=== PATIENT | female | born 1950 | race Caucasian/White ===

== ENCOUNTER 2017-09-28 17:51 | Emergency (ER) | payer MEDICARE, OTHER ==
[~2017-09-28] VITALS: Ht 175.3 cm; Wt 119.7 kg
[2017-09-28 18:19] LABS: Basophils # (auto) 0.1 uL; Basophils % (auto) 0.9 % (0.0-2.0); Eosinophils # (auto) 0.2 uL; Eosinophils % (auto) 2.3 % (0.0-7.0); Hematocrit 42.9 % (36.0-46.0); Hemoglobin 14.8 g/dL (12.2-16.2); Lymphocytes # (auto) 3.4 uL; Mean Corpuscular Hemoglobin 32.3 pg (28.0-32.0); Mean Corpuscular Hgb Conc. 34.4 g/dL (32.0-36.0); Mean Corpuscular Volume 93.7 fL (80.0-100.0); Monocytes # (auto) 0.8 uL; Monocytes % (auto) 8.2 % (0.0-12.0); Neutrophils # (auto) 5.7 uL; Neutrophils % (auto) 55.6 % (37.0-80.0); Nucleated Red Blood Cells % 0.1 %; Platelet Count (auto) 270 10^3/uL (140-450); White Blood Cell 10.2 10^3/uL (4.4-10.8)
[2017-09-28 18:32] LABS: INR 0.96 (0.9-1.15); Partial Thromboplastin Time 29.8 sec (22.64-33.71); Prothrombin Time 10.5 sec (9.37-12.3)
[2017-09-28 18:36] LABS: Albumin 2.9 g/dL (3.4-5.0); Anion Gap 8 (5-15); Aspartate Aminotransferase 16 U/L (15-37); BUN/Creatinine Ratio 11.7; Blood Urea Nitrogen 12 mg/dL (7-18); Calcium 8.2 mg/dL (8.5-10.1); Carbon Dioxide 25 mmol/L (21-32); Chloride 107 mmol/L (98-107); GFR African American 69 mL/min; GFR Non-African American 57 mL/min; Glucose 100 mg/dL (74-106); Magnesium 1.9 mg/dL (1.6-2.6); Potassium 4.1 mmol/L (3.5-5.1); Sodium 140 mmol/L (136-145)
[2017-09-28 18:41] LABS: Alkaline Phosphatase 115 U/L (45-117); Bilirubin, Total 0.3 mg/dL (0.2-1.0); Total Protein 7.5 g/dL (6.4-8.2)
[2017-09-28 21:35] VITALS: BP 113/65
== END 2017-09-28 23:07 | disposition left against medical advice (07) ==
LOC: ER 18:01
DX: R00.2 Palpitations (principal); Z53.21 Procedure and treatment not carried out due to patient leaving prior to being seen by health care provider
CPT/HCPCS: 36415; 80053; 83735; 84484; 85025; 85610; 85730; 93005

== ENCOUNTER 2018-11-07 01:37 | Emergency (ER) | payer OTHER, MEDICAID ==
[~2018-11-07] VITALS: Ht 175.3 cm; Wt 108.9 kg
[2018-11-07] MEDS ORDERED: DILTIAZEM HCL 25 MG/5 ML VIAL IV ONE ×2 (03:10→03:30)
[2018-11-07] MEDS ORDERED: ADENOSINE 6 MG/2 ML INJ IV ONE (03:30)
[2018-11-07 04:25] LABS: Basophils # (auto) 0.1 uL; Eosinophils # (auto) 0.1 uL; Hematocrit 44.4 % (36.0-46.0); Lymphocytes # (auto) 2.1 uL; Lymphocytes % (auto) 17.9 % (10.0-50.0); Mean Corpuscular Hgb Conc. 33.8 g/dL (32.0-36.0); Mean Corpuscular Volume 91.7 fL (80.0-100.0); Monocytes # (auto) 0.7 uL; Monocytes % (auto) 5.9 % (0.0-12.0); Neutrophils # (auto) 8.7 uL; Neutrophils % (auto) 74.2 % (37.0-80.0); Platelet Count (auto) 278 10^3/uL (140-450); Red Blood Cells 4.84 10^6/uL (4.0-5.20); Red Cell Distribution Width 15.1 % (11.8-14.3); White Blood Cell 11.7 10^3/uL (4.4-10.8)
[2018-11-07 04:35] LABS: Albumin 3.1 g/dL (3.4-5.0); Anion Gap 7 (5-15); BUN/Creatinine Ratio 12.8; Blood Urea Nitrogen 12 mg/dL (7-18); Calcium 7.9 mg/dL (8.5-10.1); Carbon Dioxide 25 mmol/L (21-32); Chloride 110 mmol/L (98-107); GFR African American 77 mL/min; GFR Non-African American 63 mL/min; Glucose 107 mg/dL (74-106); Potassium 3.9 mmol/L (3.5-5.1); Sodium 142 mmol/L (136-145)
[2018-11-07 04:41] LABS: Alanine Aminotransferase 14 U/L (13-56); Alkaline Phosphatase 112 U/L (45-117); Aspartate Aminotransferase 16 U/L (15-37); Bilirubin, Total 0.3 mg/dL (0.2-1.0); Total Protein 7.4 g/dL (6.4-8.2)
[2018-11-07 04:57] LABS: INR 0.94 (0.9-1.15); Prothrombin Time 10.1 sec (9.27-12.13)
[2018-11-07 08:31] VITALS: BP 129/75
== END 2018-11-07 08:52 | disposition short-term general hospital (02) ==
LOC: EDUNIT# 01:37 → EDBD 01:37 → ER 01:39
DX: J44.1 Chronic obstructive pulmonary disease with (acute) exacerbation (principal); Z88.6 Allergy status to analgesic agent
CPT/HCPCS: 36415; 71045; 80053; 83735; 83880; 84443; 84484; 85025; 85379; 85610; 85730; 93005; 94761; 96374

== ENCOUNTER 2024-08-02 11:26 | Inpatient (IN) | payer OTHER, MEDICAID ==
[~2024-08-02] VITALS: Ht 175.3 cm; Wt 95.7 kg
[2024-08-02 12:16] LABS: Basophils # (auto) 0.1 10 ^3/uL (0-0.2); Basophils % (auto) 0.9 % (0.0-2.0); Eosinophils # (auto) 0.1 10 ^3/uL (0-0.8); Hemoglobin 12.4 g/dL (12.2-16.2); Lymphocytes # (auto) 1.6 10 ^3/uL (0.4-5.4); Red Blood Cells 4.74 10^6/uL (4.0-5.20)
[2024-08-02 12:18] LABS: Eosinophils % (auto) 0.8 % (0.0-7.0); Hematocrit 37.9 % (36.0-46.0); Mean Corpuscular Hemoglobin 26.2 pg (28.0-32.0); Mean Corpuscular Hgb Conc. 32.7 g/dL (32.0-36.0); Monocytes # (auto) 0.7 10 ^3/uL (0-1.3); Monocytes % (auto) 6.4 % (0.0-12.0); Neutrophils # (auto) 9.1 10 ^3/uL (1.6-8.6); Neutrophils % (auto) 77.9 % (37.0-80.0); Nucleated Red Blood Cells % 0.1 %; Platelet Count (auto) 297 10^3/uL (140-450); Red Cell Distribution Width 19.4 % (11.8-14.3); White Blood Cell 11.7 10^3/uL (4.4-10.8)
[2024-08-02 12:26] LABS: Chloride 104 mmol/L (98-107); Sodium 141 mmol/L (136-145)
[2024-08-02 12:27] LABS: Anion Gap 6 (5-15); Carbon Dioxide 31 mmol/L (20-31)
[2024-08-02 12:28] LABS: Calcium 8.5 mg/dL (8.7-10.4)
[2024-08-02 12:32] LABS: Glucose 106 mg/dL (74-106)
[2024-08-02 12:33] LABS: Magnesium 1.2 mg/dL (1.6-2.6)
[2024-08-02 12:35] LABS: BUN/Creatinine Ratio 5.4 (10.0-20.0); Blood Urea Nitrogen < 5 mg/dL (9-23)
[2024-08-02] MEDS: IOHEXOL 350 MG/ML 100ML IJ ONE (15:42)
[2024-08-02 16:14] LABS: INR 1.07 (0.9-1.15); Partial Thromboplastin Time 28.5 SEC (24.5-34.5); Prothrombin Time 11.3 sec (9.3-11.8)
[2024-08-02 17:12] VITALS: PULSE 55; RESP 12; O2SAT 100
[2024-08-02] MEDS: HEPARIN SODIUM (PORCINE) 5000 UNITS/ML 1ML VIAL IV ONE ×2 (17:25→17:28)
[2024-08-02] MEDS: HEPARIN DRIP/D5W 100UNITS/ML 250 ML IV SCH (17:29)
[2024-08-02] MEDS: POTASSIUM CHL 20MEQ/100ML 100 ML IV ONE (17:36)
[2024-08-02] MEDS: POTASSIUM CHL 20 Meq TABLET PO ONE (17:44)
[2024-08-02 18:29] LABS: COVID19 ANTIGEN SOFIA FIA NEGATIVE (NEGATIVE); Rapid Influenza A Negative (Negative); Rapid Influenza B Negative (Negative)
[2024-08-02] MEDS: CALCIUM GLUC 1,000mg/50ml-NS 50 ML IV ONE (21:47)
[2024-08-02] MEDS: MAGNESIUM SULFATE 1GM/100ML 100 ML IV SCH ×2 (21:47→23:59)
[2024-08-02 22:59] LABS: INR 1.15 (0.9-1.15); Prothrombin Time 12.1 sec (9.3-11.8)
[2024-08-02 23:00] LABS: Partial Thromboplastin Time 136.3 SEC (24.5-34.5)
[2024-08-03] MEDS: HEPARIN DRIP/D5W 100UNITS/ML 250 ML IV SCH (00:34)
[2024-08-03] MEDS: MELATONIN 5 MG TAB PO ONE (00:41)
[2024-08-03] MEDS: cefTRIAXone 1GM/50ML D5W 50 ML IV ONE (00:43)
[2024-08-03] MEDS ORDERED: ALBUTEROL SULF 2.5 MG/0.5ML(0.5%) NEB SOLN NEB PRN (01:00)
[2024-08-03] MEDS ORDERED: IPRATROPIUM BROM 0.5 MG/2.5ML INH SOL NEB PRN (01:00)
[2024-08-03] MEDS: AZITHROMYCIN 500MG/ 250ML 250 ML IV ONE (01:34)
[2024-08-03 02:46] LABS: Albumin 3.5 g/dL (3.2-4.8); Alkaline Phosphatase 85 U/L (46-116); Anion Gap 6 (5-15); Aspartate Aminotransferase 11 U/L (13-40); Calcium 8.4 mg/dL (8.7-10.4); Carbon Dioxide 27 mmol/L (20-31); Chloride 105 mmol/L (98-107); Glucose 122 mg/dL (74-106); Potassium 2.6 mmol/L (3.5-5.1); Sodium 138 mmol/L (136-145)
[2024-08-03 02:47] LABS: Alanine Aminotransferase < 9 U/L (7-40); BUN/Creatinine Ratio 5.8 (10.0-20.0); Bilirubin, Total 0.5 mg/dL (0.2-1.0); Blood Urea Nitrogen < 5 mg/dL (9-23); Total Protein 6.6 g/dL (5.7-8.2)
[2024-08-03 03:16] VITALS: BP 145/64; PULSE 61; RESP 20; TEMP 98.2; O2SAT 96
[2024-08-03] MEDS: POTASSIUM CHL 20MEQ/100ML 100 ML IV SCH (04:45)
[2024-08-03] MEDS: POTASSIUM CHLORIDE 80 MEQ, LIDOCAINE 1% (LOCAL ANESTH.) 6 ML in SODIUM CHL 0.9% 500 ML IV ONE (06:20)
[2024-08-03] MEDS: POTASSIUM EFFERVESENT TAB 25 MEQ PO ONE (06:20)
[2024-08-03 06:32] LABS: Basophils # (auto) 0.1 10 ^3/uL (0-0.2); Basophils % (auto) 0.7 % (0.0-2.0); Eosinophils # (auto) 0.2 10 ^3/uL (0-0.8); Eosinophils % (auto) 1.6 % (0.0-7.0); Hematocrit 36.5 % (36.0-46.0); Hemoglobin 11.9 g/dL (12.2-16.2); Lymphocytes # (auto) 3.2 10 ^3/uL (0.4-5.4); Lymphocytes % (auto) 25.6 % (10.0-50.0); Mean Corpuscular Hemoglobin 26.1 pg (28.0-32.0); Mean Corpuscular Hgb Conc. 32.6 g/dL (32.0-36.0); Mean Corpuscular Volume 80.2 fL (80.0-100.0); Monocytes # (auto) 0.9 10 ^3/uL (0-1.3); Monocytes % (auto) 7.5 % (0.0-12.0); Neutrophils # (auto) 8.1 10 ^3/uL (1.6-8.6); Neutrophils % (auto) 64.6 % (37.0-80.0); Platelet Count (auto) 278 10^3/uL (140-450); Red Blood Cells 4.55 10^6/uL (4.0-5.20); White Blood Cell 12.6 10^3/uL (4.4-10.8)
[2024-08-03 06:46] LABS: Anion Gap 6 (5-15); Calcium 8.8 mg/dL (8.7-10.4); Carbon Dioxide 30 mmol/L (20-31); Chloride 104 mmol/L (98-107); Potassium 2.6 mmol/L (3.5-5.1); Sodium 140 mmol/L (136-145)
[2024-08-03 06:51] LABS: Glucose 108 mg/dL (74-106)
[2024-08-03 06:53] LABS: Magnesium 1.9 mg/dL (1.6-2.6)
[2024-08-03 06:54] LABS: BUN/Creatinine Ratio 6.3 (10.0-20.0); Blood Urea Nitrogen < 5 mg/dL (9-23)
[2024-08-03 07:00] LABS: INR 1.08 (0.9-1.15); Prothrombin Time 11.4 sec (9.3-11.8)
[2024-08-03 07:09] LABS: Partial Thromboplastin Time 72.2 SEC (24.5-34.5)
[2024-08-03 08:00] VITALS: PULSE 58; RESP 11; O2SAT 97
[2024-08-03 10:45] VITALS: O2SAT 95
[2024-08-03 10:58] LABS: Magnesium 1.9 mg/dL (1.6-2.6)
[2024-08-03 12:36] LABS: INR 1.1 (0.9-1.15); Prothrombin Time 11.6 sec (9.3-11.8)
[2024-08-03 12:52] LABS: Partial Thromboplastin Time 77.8 SEC (24.5-34.5)
[2024-08-03] MEDS ORDERED: POTASSIUM CHL 20MEQ/100ML 100 ML IV SCH (13:00)
[2024-08-03] MEDS: MAGNESIUM OXIDE 400 MG TAB PO ONE (13:26)
[2024-08-03] MEDS: POTASSIUM CHL 20 Meq TABLET PO ONE (14:44)
[2024-08-03 19:55] LABS: INR 1.1 (0.9-1.15); Partial Thromboplastin Time 58.8 SEC (24.5-34.5); Prothrombin Time 11.6 sec (9.3-11.8)
[2024-08-03 20:46] VITALS: PULSE 73; RESP 17; O2SAT 88
[2024-08-03 23:39] VITALS: BP 140/55; PULSE 64; RESP 18; TEMP 98.3; O2SAT 96
[2024-08-04] VITALS (10 sets, daily range): BP systolic 131–151; BP diastolic 46–56; PULSE 60–70; RESP 18–20; TEMP 97.9–98.3; O2SAT 90–97
[2024-08-04] MEDS: cefTRIAXone 1GM/50ML D5W 50 ML IV SCH (01:15)
[2024-08-04] MEDS ORDERED: ATEN-60 PO (01:32)
[2024-08-04] MEDS ORDERED: FLUO60TA7 PO (01:32)
[2024-08-04] MEDS ORDERED: ATOR20TA50 PO (01:32)
[2024-08-04] MEDS ORDERED: HYDR-4902 PO (01:32)
[2024-08-04] MEDS ORDERED: ALBUAER3 IN (01:32)
[2024-08-04] MEDS ORDERED: OMEP20TA PO (01:32)
[2024-08-04] MEDS ORDERED: LEVO250T58 PO (01:32)
[2024-08-04 01:42] LABS: INR 1.06 (0.9-1.15); Partial Thromboplastin Time 29.8 SEC (24.5-34.5); Prothrombin Time 11.2 sec (9.3-11.8)
[2024-08-04] MEDS: AZITHROMYCIN 500MG/ 250ML 250 ML IV SCH (02:06)
[2024-08-04] MEDS: HEPARIN SODIUM (PORCINE) 5000 UNITS/ML 1ML VIAL IV ONE (02:26)
[2024-08-04] MEDS: HEPARIN DRIP/D5W 100UNITS/ML 250 ML IV SCH (02:32)
[2024-08-04 06:36] LABS: Anion Gap 5 (5-15); Carbon Dioxide 32 mmol/L (20-31); Chloride 104 mmol/L (98-107); Sodium 141 mmol/L (136-145)
[2024-08-04 06:37] LABS: Calcium 8.7 mg/dL (8.7-10.4)
[2024-08-04 06:38] LABS: Basophils # (auto) 0.1 10 ^3/uL (0-0.2); Eosinophils # (auto) 0.4 10 ^3/uL (0-0.8); Hemoglobin 11.6 g/dL (12.2-16.2); Lymphocytes # (auto) 3.5 10 ^3/uL (0.4-5.4); Neutrophils # (auto) 7.1 10 ^3/uL (1.6-8.6); Red Cell Distribution Width 18.9 % (11.8-14.3)
[2024-08-04 06:42] LABS: Glucose 95 mg/dL (74-106)
[2024-08-04 06:49] LABS: BUN/Creatinine Ratio 6.7 (10.0-20.0); Blood Urea Nitrogen < 5 mg/dL (9-23)
[2024-08-04 06:58] LABS: Basophils % (auto) 0.8 % (0.0-2.0); Eosinophils % (auto) 3.3 % (0.0-7.0); Hematocrit 35.5 % (36.0-46.0); Lymphocytes % (auto) 29.4 % (10.0-50.0); Mean Corpuscular Hemoglobin 26.5 pg (28.0-32.0); Mean Corpuscular Hgb Conc. 32.8 g/dL (32.0-36.0); Mean Corpuscular Volume 80.8 fL (80.0-100.0); Monocytes # (auto) 0.9 10 ^3/uL (0-1.3); Monocytes % (auto) 7.4 % (0.0-12.0); Neutrophils % (auto) 59.1 % (37.0-80.0); Platelet Count (auto) 296 10^3/uL (140-450); Red Blood Cells 4.39 10^6/uL (4.0-5.20)
[2024-08-04] MEDS ORDERED: ALBUTEROL SULF HFA 90MCG INH 200DOSE IN PRN (07:15)
[2024-08-04 08:49] LABS: Free T4 (Free Thyroxine) 0.99 ng/dL (0.89-1.76); T3 Total 0.54 ng/mL (0.60-1.81)
[2024-08-04] MEDS: POTASSIUM EFFERVESENT TAB 25 MEQ PO ONE (10:25)
[2024-08-04] MEDS: ATORVASTATIN 20 MG TAB PO SCH (10:26)
[2024-08-04] MEDS: FLUoxetine HCL 10 MG CAP PO SCH (10:26)
[2024-08-04] MEDS: ATENOLOL 25 MG TAB PO SCH (10:27)
[2024-08-04 11:13] LABS: INR 1.06 (0.9-1.15); Prothrombin Time 11.2 sec (9.3-11.8)
[2024-08-04] MEDS ORDERED: ACETAMINOPHEN 325 MG TAB PO PRN (13:00)
[2024-08-04] MEDS: POTASSIUM CHL 20MEQ/100ML 100 ML IV SCH (13:00)
[2024-08-04] MEDS: HYDROcodone-ACET 5/325MG TAB PO PRN (15:28)
[2024-08-04] MEDS ORDERED: POTASSIUM CHLORIDE 40 MEQ, LIDOCAINE 1% (LOCAL ANESTH.) 4 ML in SODIUM CHL 0.9% 250 ML IV ONE (18:00)
[2024-08-04] MEDS: POTASSIUM CHLORIDE 40 MEQ, LIDOCAINE 1% (LOCAL ANESTH.) 4 ML in SODIUM CHL 0.9% 250 ML IV ONE (21:17)
[2024-08-04] MEDS: ENOXAPARIN SOD 100 MG/1 ML SYRINGE SC SCH (21:33)
[2024-08-05] VITALS (8 sets, daily range): BP systolic 144–164; BP diastolic 53–71; PULSE 56–78; RESP 16–20; TEMP 36.6; O2SAT 90–94
[2024-08-05] MEDS: LEVOTHYROXINE SODIUM 50 MCG TAB PO SCH (06:10)
[2024-08-05 07:04] LABS: Basophils # (auto) 0.1 10 ^3/uL (0-0.2); Eosinophils # (auto) 0.3 10 ^3/uL (0-0.8); Hemoglobin 12.1 g/dL (12.2-16.2); Monocytes # (auto) 0.8 10 ^3/uL (0-1.3); Neutrophils # (auto) 4.5 10 ^3/uL (1.6-8.6); White Blood Cell 8.7 10^3/uL (4.4-10.8)
[2024-08-05 07:05] LABS: Chloride 105 mmol/L (98-107); Potassium 3.8 mmol/L (3.5-5.1); Sodium 140 mmol/L (136-145)
[2024-08-05 07:06] LABS: Anion Gap 4 (5-15); Carbon Dioxide 31 mmol/L (20-31)
[2024-08-05 07:07] LABS: Basophils % (auto) 1.1 % (0.0-2.0); Eosinophils % (auto) 3.7 % (0.0-7.0); Hematocrit 36.9 % (36.0-46.0); Lymphocytes % (auto) 34.5 % (10.0-50.0); Mean Corpuscular Hemoglobin 26.7 pg (28.0-32.0); Mean Corpuscular Hgb Conc. 32.9 g/dL (32.0-36.0); Mean Corpuscular Volume 81.2 fL (80.0-100.0); Monocytes % (auto) 8.7 % (0.0-12.0); Nucleated Red Blood Cells % 0.1 %; Platelet Count (auto) 333 10^3/uL (140-450); Red Blood Cells 4.54 10^6/uL (4.0-5.20); Red Cell Distribution Width 18.8 % (11.8-14.3)
[2024-08-05 07:12] LABS: BUN/Creatinine Ratio 7.4 (10.0-20.0); Blood Urea Nitrogen 6 mg/dL (9-23); Glucose 94 mg/dL (74-106)
[2024-08-05 09:53] LABS: Base Excess 4.1 mmol/L (-2.0-3.0)
[2024-08-05] MEDS: NIFEdipine ER 30 MG TAB PO SCH (10:00)
[2024-08-05] MEDS ORDERED: APIXABAN 5 MG TAB PO SCH ×2 (10:00→22:00)
[2024-08-05] MEDS ORDERED: hydrALAZINE HCL 20 MG/ML VL IV PRN (10:00)
[2024-08-05] MEDS: APIXABAN 5 MG TAB PO ONE (12:45)
[2024-08-05] MEDS ORDERED: CEFP200T15 PO (15:02)
[2024-08-05] MEDS ORDERED: LEVO50TA7 PO (15:02)
[2024-08-05] MEDS ORDERED: AZITTAB PO (15:02)
[2024-08-05] MEDS ORDERED: NIFE1TAB31 PO (15:02)
[2024-08-05] MEDS ORDERED: APIX5TAB PO (15:02)
[2024-08-12] MEDS ORDERED: APIXABAN 5 MG TAB PO SCH (10:00)
== END 2024-08-05 18:50 | disposition home or self-care (01) | DRG 871 ==
LOC: EDBD 11:26 → ER 11:26 → TELE 22:40 → TELE-WESTW 08-03 22:35
PROVIDERS: ADMIT Internal Medicine; ATTEND Internal Medicine
DX: A41.9 Sepsis, unspecified organism (principal); I21.A1 Myocardial infarction type 2; I26.92 Saddle embolus of pulmonary artery without acute cor pulmonale; J96.01 Acute respiratory failure with hypoxia; J15.69 Pneumonia due to other Gram-negative bacteria; J15.9 Unspecified bacterial pneumonia; J98.11 Atelectasis; J44.0 Chronic obstructive pulmonary disease with (acute) lower respiratory infection; J90 Pleural effusion, not elsewhere classified; Z20.822 Contact with and (suspected) exposure to COVID-19; I10 Essential (primary) hypertension; Z68.30 Body mass index [BMI] 30.0-30.9, adult; E66.9 Obesity, unspecified; E78.5 Hyperlipidemia, unspecified; F17.210 Nicotine dependence, cigarettes, uncomplicated; E87.6 Hypokalemia; E83.51 Hypocalcemia; E83.42 Hypomagnesemia; Z90.49 Acquired absence of other specified parts of digestive tract; Z90.710 Acquired absence of both cervix and uterus; Z85.42 Personal history of malignant neoplasm of other parts of uterus; Z88.5 Allergy status to narcotic agent
CPT/HCPCS: 36415; 36600; 71045; 71275; 80048; 80053; 82306; 82607; 82805; 83036; 83605; 83735; 83880; 84132; 84439; 84443; 84480; 84484; 85025; 85048; 85379; 85610; 85730; 87040; 87045; 87081; 87426; 87427; 87493; 87804; 93005; 93306; 93970; 97163; 99291; G0378; J2001; J2003; J3480